=== PATIENT | female | born 1980 | race Caucasian/White ===

== ENCOUNTER 2022-03-24 18:21 | Inpatient (IN) | payer SELFPAY ==
[~2022-03-24] VITALS: Ht 162.6 cm; Wt 109.8 kg
[2022-03-24] MEDS ORDERED: ONDANSETRON HCL 4MG/2ML INJ IV STA (19:42)
[2022-03-24] MEDS ORDERED: ACETAMINOPHEN 325MG TABLET PO STA (19:42)
[2022-03-24] MEDS ORDERED: SODIUM CHLORIDE 0.9% 1,000 ML IV ONE (19:45)
[2022-03-24 20:10] LABS: BASOPHILS % 0.4 % (0.0-2.0); HEMATOCRIT. 24.8 % (36.0-48.0); HEMOGLOBIN. 7.4 g/dL (12.0-16.0); LYMPHOCYTES % 14.5 % (20.0-50.0); MEAN CORPUSCULAR HEMOGLOBIN 18.1 pg (28.0-32.0); MEAN CORPUSCULAR VOLUME 60.4 fL (81.0-99.0); MEAN PLATELET VOLUME 8.9 fl (7.4-10.4); MONOCYTES % 3.9 % (2.0-8.0); NEUTROPHILS % 81.2 % (40.0-76.0); PLATELET 167 x1000/uL (130-400); RED BLOOD CELL COUNT 4.12 mill/uL (4.2-5.4); RED CELL DISTRIBUTION WIDTH 18.4 % (11.6-14.6)
[2022-03-24 20:16] LABS: CHLORIDE 101 mEq/L (98-107)
[2022-03-24 20:51] LABS: CLARITY URINE CLOUDY (CLEAR); COLOR URINE ORANGE (YELLOW); KETONES URINE NEGATIVE (NEGATIVE); LEUKOCYTE ESTERASE URINE 2+ (NEGATIVE); NITRITE URINE NEGATIVE (NEGATIVE); OCCULT BLOOD URINE 3+ (NEGATIVE); PH URINE 5.5 (4.5-8.0); PROTEIN URINE 2+ (NEGATIVE); SPECIFIC GRAVITY URINE 1.022 (1.005-1.030); UROBILINOGEN URINE 0.2 E.U./dL (0.2-1.0)
[2022-03-24 20:54] LABS: PLATELET ESTIMATE NORMAL
[2022-03-24] MEDS ORDERED: POTASSIUM CHLORIDE 20MEQ TABLET SR PO NR (21:00)
[2022-03-24] MEDS ORDERED: KCL 20MEQ/100ML PREMIX 100 ML IV NR (21:00)
[2022-03-25] MEDS ORDERED: MORPHINE SULFATE 2 MG/ML CPJ (NOT FOR IM USE) IV ONE (01:30)
[2022-03-25] MEDS ORDERED: ONDANSETRON HCL 4MG/2ML INJ IV ONE (01:30)
[2022-03-25] MEDS ORDERED: ACETAMINOPHEN 325MG TABLET ONE (05:20)
[2022-03-25] MEDS: ACETAMINOPHEN 650MG/20.3ML UDC PO PRN ×3 (05:33→21:17)
[2022-03-25] MEDS ORDERED: SODIUM CHLORIDE 0.9% 500 ML IV NR (08:34)
[2022-03-25] MEDS ORDERED: NOREPINEPHRINE 8MG/250ML PMX 250 ML IV ONE (11:00)
[2022-03-25] MEDS: NOREPINEPHRINE 8 MG in DEXTROSE 5% WATER 250 ML IV PRN (11:15)
[2022-03-25] MEDS ORDERED: DOCUSATE SODIUM 100MG CAPSULE PO PRN (14:30)
[2022-03-25] MEDS ORDERED: CLONIDINE 0.1MG TABLET PO PRN (14:30)
[2022-03-25] MEDS ORDERED: IPRATROPIUM/ALBUTEROL 0.5-3(2.5)MG/3ML NEB HHN PRN (14:30)
[2022-03-25] MEDS ORDERED: CEFTRIAXONE 1 G PREMIX 50 ML IV NR (14:45)
[2022-03-25] MEDS ORDERED: NALOXONE HCL 0.4MG/ML VIAL IV PRN (14:45)
[2022-03-25] MEDS: HYDROCODONE/ACETAMINOPHEN 5/325MG TABLET PO PRN (15:38)
[2022-03-25 16:00] LABS: PHOSPHORUS 1.3 mg/dL (2.5-4.9)
[2022-03-25 16:15] LABS: VITAMIN B12 SERUM >2000 pg/mL pg/mL (211-911)
[2022-03-25] MEDS ORDERED: POTASSIUM CHLORIDE 20MEQ TABLET SR PO NR (16:15)
[2022-03-25] MEDS: LACTATED RINGERS 1,000 ML IV SCH (16:44)
[2022-03-25 16:48] LABS: FERRITIN 124 ng/mL (10-291)
[2022-03-25] MEDS: IRON SUCROSE COMPLEX 100 MG/5 ML ML IV SCH (17:00)
[2022-03-25 17:52] LABS: HEPATITIS B SURFACE ANTIGEN NEGATIVE
[2022-03-25] MEDS ORDERED: NOREPINEPHRINE 8 MG in DEXT 5% WATER 250 ML IV NR (22:45)
[2022-03-25 23:28] VITALS: BP 110/55
[2022-03-25 23:36] VITALS: BP 110/55
[2022-03-26] VITALS (91 sets, daily range): BP systolic 50–189; BP diastolic 23–94
[2022-03-26] MEDS: LACTATED RINGERS 1,000 ML IV SCH ×3 (01:17→17:11)
[2022-03-26] MEDS: NOREPINEPHRINE 8 MG in DEXTROSE 5% WATER 250 ML IV PRN (01:19)
[2022-03-26] MEDS: ACETAMINOPHEN 650MG/20.3ML UDC PO PRN ×4 (03:45→23:16)
[2022-03-26] MEDS: ONDANSETRON HCL 4MG/2ML INJ IV PRN ×4 (03:45→21:17)
[2022-03-26 06:43] LABS: BASOPHILS % 0.2 % (0.0-2.0); LYMPHOCYTES % 18.7 % (20.0-50.0); MEAN CORPUSCULAR HEMOGLOBIN 18.1 pg (28.0-32.0); MEAN CORPUSCULAR VOLUME 59.9 fL (81.0-99.0); MEAN PLATELET VOLUME 10.1 fl (7.4-10.4); MONOCYTES % 5.9 % (2.0-8.0); NEUTROPHILS % 75.2 % (40.0-76.0); PLATELET 145 x1000/uL (130-400); RED BLOOD CELL COUNT 3.46 mill/uL (4.2-5.4); RED CELL DISTRIBUTION WIDTH 18.4 % (11.6-14.6)
[2022-03-26 07:13] LABS: CHLORIDE 104 mEq/L (98-107)
[2022-03-26 08:12] LABS: HEMATOCRIT. 20.7 % (36.0-48.0); HEMOGLOBIN. 6.3 g/dL (12.0-16.0)
[2022-03-26] MEDS ORDERED: CEFTRIAXONE 1,000 MG in DEXTROSE 5% WATER 50 ML IV SCH (09:00)
[2022-03-26 10:02] LABS: PHOSPHORUS 1.2 mg/dL (2.5-4.9)
[2022-03-26] MEDS ORDERED: POTASSIUM PHOS,M-BASIC-D-BASIC 30 MMOL in DEXT 5% WATER 500 ML IV NR (12:00)
[2022-03-26] MEDS: MIDODRINE HCL 5MG TABLET PO SCH ×3 (15:00→23:17)
[2022-03-26] MEDS: MORPHINE SULFATE 2 MG/ML CPJ (NOT FOR IM USE) IV PRN ×3 (15:04→23:17)
[2022-03-26 15:32] LABS: HEMATOCRIT 26.6 % (36.0-48.0); HEMOGLOBIN 8.1 g/dL (12.0-16.0)
[2022-03-26] MEDS ORDERED: PIPERACILLIN/TAZOBACTAM 3.375 G in DEXTROSE 5% WATER 50 ML IV NR (17:00)
[2022-03-26] MEDS: IRON SUCROSE COMPLEX 100 MG/5 ML ML IV SCH (17:10)
[2022-03-26] MEDS: PIPERACILLIN/TAZOBACTAM 3.375 G in DEXTROSE 5% WATER 50 ML IV SCH (21:23)
[2022-03-27] VITALS (89 sets, daily range): BP systolic 80–166; BP diastolic 37–103
[2022-03-27] MEDS: LACTATED RINGERS 1,000 ML IV SCH ×3 (03:30→21:10)
[2022-03-27] MEDS: MORPHINE SULFATE 2 MG/ML CPJ (NOT FOR IM USE) IV PRN ×4 (03:44→19:24)
[2022-03-27] MEDS: NOREPINEPHRINE 8 MG in DEXTROSE 5% WATER 250 ML IV PRN (05:19)
[2022-03-27] MEDS: PIPERACILLIN/TAZOBACTAM 3.375 G in DEXTROSE 5% WATER 50 ML IV SCH ×3 (05:32→22:07)
[2022-03-27 05:50] LABS: BASOPHILS % 0.4 % (0.0-2.0); HEMATOCRIT. 21.7 % (36.0-48.0); LYMPHOCYTES % 20.9 % (20.0-50.0); MEAN CORPUSCULAR VOLUME 61.2 fL (81.0-99.0); MEAN PLATELET VOLUME 9.8 fl (7.4-10.4); MONOCYTES % 5.3 % (2.0-8.0); NEUTROPHILS % 73.4 % (40.0-76.0); PLATELET 156 x1000/uL (130-400); RED BLOOD CELL COUNT 3.55 mill/uL (4.2-5.4); RED CELL DISTRIBUTION WIDTH 20.1 % (11.6-14.6)
[2022-03-27 06:01] LABS: CHLORIDE 105 mEq/L (98-107)
[2022-03-27 06:06] LABS: HEMOGLOBIN. 6.7 g/dL (12.0-16.0)
[2022-03-27] MEDS ORDERED: POTASSIUM CHLORIDE 20MEQ TABLET SR PO NR ×2 (08:30→12:00)
[2022-03-27] MEDS: ACETAMINOPHEN 650MG/20.3ML UDC PO PRN ×2 (09:27→17:10)
[2022-03-27] MEDS: ONDANSETRON HCL 4MG/2ML INJ IV PRN ×2 (09:28→17:10)
[2022-03-27] MEDS ORDERED: POTASSIUM CHLORIDE INJ 40 MEQ in DEXT 5% WATER 250 ML IV ONE ×2 (10:15→11:00)
[2022-03-27] MEDS: KCL 20MEQ/100ML X 2 FOR TOTAL KCL 40MEQ/200ML IV SCH ×2 (13:38→16:00)
[2022-03-27] MEDS: MIDODRINE HCL 5MG TABLET PO SCH ×2 (14:35→22:07)
[2022-03-27] MEDS ORDERED: KCL 20MEQ/100ML X 2 FOR TOTAL KCL 40MEQ/200ML IV SCH (15:30)
[2022-03-27] MEDS: IRON SUCROSE COMPLEX 100 MG/5 ML ML IV SCH (18:01)
[2022-03-27] MEDS: GUAIFENESIN 200MG/10ML SUGAR FREE UDC PO PRN (21:10)
[2022-03-27] MEDS: LORAZEPAM 0.5MG TABLET PO PRN (21:11)
[2022-03-28] VITALS (57 sets, daily range): BP systolic 93–166; BP diastolic 39–79
[2022-03-28] MEDS: NOREPINEPHRINE 8 MG in DEXTROSE 5% WATER 250 ML IV PRN (00:12)
[2022-03-28] MEDS: MORPHINE SULFATE 2 MG/ML CPJ (NOT FOR IM USE) IV PRN ×4 (00:30→19:50)
[2022-03-28] MEDS: GUAIFENESIN 200MG/10ML SUGAR FREE UDC PO PRN ×4 (00:53→18:58)
[2022-03-28] MEDS ORDERED: DIPHENHYDRAMINE 50MG/ML VIAL IV NR (01:00)
[2022-03-28] MEDS: LACTATED RINGERS 1,000 ML IV SCH ×3 (02:35→22:10)
[2022-03-28] MEDS: LORAZEPAM 0.5MG TABLET PO PRN (05:31)
[2022-03-28] MEDS: PIPERACILLIN/TAZOBACTAM 3.375 G in DEXTROSE 5% WATER 50 ML IV SCH ×3 (05:31→22:32)
[2022-03-28] MEDS: HYDROCODONE/ACETAMINOPHEN 5/325MG TABLET PO PRN (05:41)
[2022-03-28] MEDS: MIDODRINE HCL 5MG TABLET PO SCH ×3 (06:00→22:36)
[2022-03-28 06:54] LABS: BASOPHILS % 0.6 % (0.0-2.0); EOSINOPHILS % 0.1 % (0.0-5.0); HEMATOCRIT. 24.4 % (36.0-48.0); HEMOGLOBIN. 7.7 g/dL (12.0-16.0); LYMPHOCYTES % 25.7 % (20.0-50.0); MEAN CORPUSCULAR HEMOGLOBIN 19.8 pg (28.0-32.0); MEAN CORPUSCULAR VOLUME 62.6 fL (81.0-99.0); MEAN PLATELET VOLUME 10.1 fl (7.4-10.4); MONOCYTES % 5.6 % (2.0-8.0); PLATELET 169 x1000/uL (130-400); RED BLOOD CELL COUNT 3.89 mill/uL (4.2-5.4)
[2022-03-28 07:08] LABS: CHLORIDE 103 mEq/L (98-107)
[2022-03-28] MEDS: ONDANSETRON HCL 4MG/2ML INJ IV PRN (09:39)
[2022-03-28] MEDS ORDERED: POTASSIUM CHLORIDE INJ 40 MEQ in DEXT 5% WATER 250 ML IV ONE (11:15)
[2022-03-28] MEDS: KCL 20MEQ/100ML X 2 FOR TOTAL KCL 40MEQ/200ML IV SCH ×2 (11:34→13:55)
[2022-03-29] VITALS (7 sets, daily range): BP systolic 102–133; BP diastolic 59–80
[2022-03-29] MEDS: GUAIFENESIN 200MG/10ML SUGAR FREE UDC PO PRN ×4 (01:05→20:16)
[2022-03-29] MEDS: MORPHINE SULFATE 2 MG/ML CPJ (NOT FOR IM USE) IV PRN (05:02)
[2022-03-29] MEDS: LACTATED RINGERS 1,000 ML IV SCH ×3 (06:16→20:20)
[2022-03-29] MEDS: PIPERACILLIN/TAZOBACTAM 3.375 G in DEXTROSE 5% WATER 50 ML IV SCH ×3 (06:16→22:53)
[2022-03-29] MEDS: MIDODRINE HCL 5MG TABLET PO SCH ×3 (06:17→22:53)
[2022-03-29 06:41] LABS: BASOPHILS % 0.5 % (0.0-2.0); EOSINOPHILS % 0.5 % (0.0-5.0); HEMATOCRIT. 25.4 % (36.0-48.0); HEMOGLOBIN. 7.9 g/dL (12.0-16.0); LYMPHOCYTES % 33.1 % (20.0-50.0); MEAN CORPUSCULAR HEMOGLOBIN 20.2 pg (28.0-32.0); MEAN PLATELET VOLUME 9.4 fl (7.4-10.4); NEUTROPHILS % 57.9 % (40.0-76.0); PLATELET 221 x1000/uL (130-400); RED CELL DISTRIBUTION WIDTH 22.9 % (11.6-14.6)
[2022-03-29 06:44] LABS: CHLORIDE 105 mEq/L (98-107)
[2022-03-29 12:50] LABS: PLATELET ESTIMATE NORMAL
[2022-03-29] MEDS: ONDANSETRON HCL 4MG/2ML INJ IV PRN (17:01)
[2022-03-30] VITALS (9 sets, daily range): BP systolic 88–145; BP diastolic 32–80
[2022-03-30] MEDS: LACTATED RINGERS 1,000 ML IV SCH ×2 (04:41→12:55)
[2022-03-30] MEDS: MIDODRINE HCL 5MG TABLET PO SCH ×3 (05:08→21:42)
[2022-03-30] MEDS: PIPERACILLIN/TAZOBACTAM 3.375 G in DEXTROSE 5% WATER 50 ML IV SCH ×3 (05:08→21:41)
[2022-03-30 07:31] LABS: HCG SCREEN NEGATIVE
[2022-03-30] MEDS ORDERED: DIATR MEGLU/DIATRIZOATE SOLN 30ML PO NR (08:00)
[2022-03-30] MEDS: PANTOPRAZOLE SODIUM 40 MG/VIAL IV SCH (13:23)
[2022-03-30] MEDS: GUAIFENESIN 200MG/10ML SUGAR FREE UDC PO PRN (21:41)
[2022-03-31] VITALS: BP 126/74
[2022-03-31 04:00] VITALS: BP 118/66
[2022-03-31] MEDS: PIPERACILLIN/TAZOBACTAM 3.375 G in DEXTROSE 5% WATER 50 ML IV SCH (06:03)
[2022-03-31] MEDS: GUAIFENESIN 200MG/10ML SUGAR FREE UDC PO PRN (06:03)
[2022-03-31] MEDS: MIDODRINE HCL 5MG TABLET PO SCH (06:03)
[2022-03-31 07:15] LABS: BASOPHILS % 0.7 % (0.0-2.0); EOSINOPHILS % 1.6 % (0.0-5.0); HEMATOCRIT. 25.8 % (36.0-48.0); HEMOGLOBIN. 8.1 g/dL (12.0-16.0); LYMPHOCYTES % 32.3 % (20.0-50.0); MEAN CORPUSCULAR HEMOGLOBIN 21.3 pg (28.0-32.0); MEAN CORPUSCULAR VOLUME 67.8 fL (81.0-99.0); MEAN PLATELET VOLUME 9.3 fl (7.4-10.4); MONOCYTES % 8.5 % (2.0-8.0); NEUTROPHILS % 56.9 % (40.0-76.0); PLATELET 334 x1000/uL (130-400); RED CELL DISTRIBUTION WIDTH 23.5 % (11.6-14.6)
[2022-03-31 07:58] LABS: CHLORIDE 106 mEq/L (98-107)
[2022-03-31] MEDS: LACTATED RINGERS 1,000 ML IV SCH (08:01)
[2022-03-31] MEDS: PANTOPRAZOLE SODIUM 40 MG/VIAL IV SCH (08:01)
[2022-03-31 08:10] VITALS: BP 117/67
[2022-03-31] MEDS ORDERED: POTASSIUM CHLORIDE INJ 40 MEQ in DEXT 5% WATER 250 ML IV ONE (08:15)
[2022-03-31] MEDS: KCL 20MEQ/100ML X 2 FOR TOTAL KCL 40MEQ/200ML IV SCH ×2 (08:56→10:15)
[2022-03-31] MEDS ORDERED: PANT40TA51 MT (10:27)
[2022-03-31] MEDS ORDERED: POTASSIUM CHLORIDE 20MEQ TABLET SR PO NR (10:45)
[2022-03-31 11:23] VITALS: BP 117/67
[2022-03-31 12:00] VITALS: BP 107/63
== END 2022-03-31 13:40 | disposition home or self-care (01) | DRG 720 ==
LOC: ER 18:21 → CVICU 03-25 00:10 → EDBEDREQTM 03-25 00:22 → EDBEDREQ 03-25 00:22 → EDBEDREQSVC 03-25 12:46 → ENRESERV 03-25 16:31 → CANRESERV 03-25 16:31 → 3WST 03-28 14:34
PROVIDERS: ADMIT Internal Medicine; ATTEND Internal Medicine
PROC: 30233N1 Transfusion of Nonautologous Red Blood Cells into Peripheral Vein, Percutaneous Approach (ICD-10-PCS; principal; 2022-03-26)
PROC: 02HV33Z Insertion of Infusion Device into Superior Vena Cava, Percutaneous Approach (ICD-10-PCS; 2022-03-26)
PROC: B548ZZA Ultrasonography of Superior Vena Cava, Guidance (ICD-10-PCS; 2022-03-26)
DX: A41.9 Sepsis, unspecified organism (principal); R65.21 Severe sepsis with septic shock; R16.0 Hepatomegaly, not elsewhere classified; E88.09 Other disorders of plasma-protein metabolism, not elsewhere classified; E87.1 Hypo-osmolality and hyponatremia; D50.9 Iron deficiency anemia, unspecified; E87.6 Hypokalemia; K80.20 Calculus of gallbladder without cholecystitis without obstruction; N39.0 Urinary tract infection, site not specified; R82.71 Bacteriuria; N94.6 Dysmenorrhea, unspecified; R13.10 Dysphagia, unspecified; Z20.822 Contact with and (suspected) exposure to COVID-19; R19.7 Diarrhea, unspecified; R74.01 Elevation of levels of liver transaminase levels
CPT/HCPCS: 36415; 36573; 71045; 74176; 74177; 76705; 76830; 76856; 78227; 80048; 80053; 80076; 81003; 82150; 82270; 82607; 82728; 82746; 82962; 83540; 83550; 83605; 83735; 84100; 84132; 84145; 84703; 85014; 85018; 85025; 86705; 86709; 86803; 86850; 86900; 86920; 87015; 87045; 87177; 87209; 87340; 87426; 87427; 87449; 87493; 87804; 89055; 93005; 96361; 96365; 96375; 97162; 97166; 97530; 99285; A9537; C1725; C9113; C9803; J0696; J1200; J2270; J2405; J2543; J3480; J3490; J7030; J7060; J7120; P9016; Q9963